=== PATIENT | female | born 1965 | race Caucasian/White ===

== ENCOUNTER → 2016-06-12 | Outpatient (CLI) | payer OTHER ==
--- NOTE | 2016-06-12 13:37 | MA ---
Left Unilateral Digital Diagnostic Mammogram History: Asymmetry on screening mammograms. Comparison: Mammograms through October 25, 2006. Technique: CC and mediolateral oblique spot compression views and a true lateral view were obtained. Findings: The asymmetry on mammograms appears to resolve, however, dense breast parenchyma in the reg ion limits sensitivity. Impression: Probable resolution of central left breast asymmetry. BI-RADS 0: Needs additional imaging evaluation. Recommendation: Ultrasound, which will be performed later the same day. Please see ultrasound report and recommendations. [facility] will send a result letter to the patient.
--- NOTE | 2016-06-12 14:09 | US ---
Diagnostic Left Breast Ultrasound History: Asymmetry on mammograms. Comparison: Diagnostic mammogram same day. Technique: Limited grayscale and Doppler ultrasound in the region of mammographic abnormality is perf ormed. Real-time sonography is performed by the radiologist. Findings: Breast parenchyma in the area of interest is normal. No cystic or solid masses or areas of architectural distortion are identified. Impression: The finding on screening mammograms was likely related to overlapping fibroglandular tiss ue. BI-RADS 1: Negative. Recommendation: Screening mammograms in one year or sooner if clinically indicated. Findings and recommendations were discussed with the patient. [facility] will send a result letter to the patient.
== END ==
LOC: BMCIMAGING 12:55
DX: R92.8 Other abnormal and inconclusive findings on diagnostic imaging of breast (principal)
CPT/HCPCS: G0206

== ENCOUNTER → 2017-06-06 | Outpatient (CLI) | payer OTHER | LOC: BMCIMAGING 13:14 | PROVIDERS: ATTEND Internal Medicine | DX: Z12.31 Encounter for screening mammogram for malignant neoplasm of breast (principal); Z80.3 Family history of malignant neoplasm of breast ==

== ENCOUNTER → 2018-06-10 | Outpatient (CLI) | payer OTHER | LOC: BMCIMAGING 12:31 | PROVIDERS: ATTEND Internal Medicine | DX: Z12.31 Encounter for screening mammogram for malignant neoplasm of breast (principal) ==